=== PATIENT | male | born 1985 | race African-American/Black ===

== ENCOUNTER 2016-09-28 10:24 | Emergency (ER) | payer MEDICAID ==
[~2016-09-28] VITALS: Ht 170.2 cm; Wt 80.0 kg
[~2016-09-28 10:24] MED LIST: ONDA4TAB14 PO
[2016-09-28 10:30] VITALS: Ht 170.2 cm; Wt 80.0 kg
[2016-09-28] MEDS ORDERED: morphine 4 MG/ML VIAL IV STA (11:50)
[2016-09-28] MEDS ORDERED: ONDANSETRON 4 MG INJ IV STA (11:50)
[2016-09-28] MEDS ORDERED: SOD CHLORIDE 0.9% 1,000 ML IV STA (11:50)
[2016-09-28 12:21] LABS: ADD SCAN DIFF NO
[2016-09-28 12:27] LABS: ADD UMIC NO; URINE BILIRUBIN (Dip) NEGATIVE (NEGATIVE); URINE BLOOD (Dip) NEGATIVE (NEGATIVE); URINE COLOR LT. YELLOW (YELLOW); URINE GLUCOSE (Dip) NEGATIVE (NEGATIVE); URINE KETONES (Dip) NEGATIVE (NEGATIVE); URINE LEUKOCYTE ESTERASE (Dip) NEGATIVE (NEGATIVE); URINE NITRITE (Dip) NEGATIVE (NEGATIVE); URINE TOTAL PROTEIN (Dip) NEGATIVE (NEGATIVE); URINE UROBILINOGEN (Dip) 0.2 E.U./dL (0.1-1.0)
[2016-09-28 12:44] LABS: ALBUMIN 4.7 g/dl (3.3-4.9); ALBUMIN/GLOBULIN RATIO 2.13; BILIRUBIN,INDIRECT 0.6 mg/dl (0-1.1); BILIRUBIN,TOTAL 0.6 mg/dl (0.2-1.3); CALCIUM 9.7 mg/dl (8.4-10.2); CREATININE 1.04 mg/dl (0.61-1.24); POTASSIUM 4.5 mmol/L (3.5-5.1); TOTAL PROTEIN 6.9 g/dl (6.1-8.1)
[2016-09-28 12:50] LABS: BASOPHILS % 0.6 % (0.0-2.0); EOSINOPHILS # 0.1 10^3/ul (0.0-0.5); EOSINOPHILS % 1.2 % (0.0-7.0); HEMATOCRIT 45.5 % (42.0-52.0); LYMPHOCYTES # 1.1 10^3/ul (0.8-2.9); LYMPHOCYTES % 17.4 % (15.0-51.0); MEAN CORPUSCULAR HEMOGLOBIN 29.8 pg (29.0-33.0); MEAN CORPUSCULAR VOLUME 90.5 fl (82.0-101.0); MEAN PLATELET VOLUME 9.6 fl (7.4-10.4); MONOCYTE # 0.4 10^3/ul (0.3-0.9); MONOCYTES % 5.8 % (0.0-11.0); NEUTROPHIL # 4.9 10^3/ul (1.6-7.5); NEUTROPHILS % 74.7 % (39.0-77.0); PLATELET COUNT 319 10^3/UL (140-415); RED BLOOD COUNT 5.03 10^6/ul (4.70-6.10); RED CELL DISTRIBUTION WIDTH 12.9 % (11.5-14.5); WHITE BLOOD COUNT 6.6 10^3/ul (4.8-10.8)
[2016-09-28] MEDS ORDERED: KETOROLAC 30 MG INJ IV STA (12:56)
[2016-09-28] MEDS ORDERED: FIORICET PO (13:20)
[2016-09-28] MEDS ORDERED: ONDA8TAB14 PO (13:20)
--- NOTE | 2016-09-28 13:26 | ERD ---
ER Documentation Chief Complaint Date/Time DATE: 09/28/16 TIME: 13:22 Chief Complaint HEADACHE AND CHEST PAIN X3DAYS HPI This 30-year-old male presents with nonspecific headache and some discomfort in his chest and abdomen for last 3 days. Patient gives a remote history of migraines. This 1 feels similar to headaches he has had in the past although somewhat worse. Denies any history of trauma, fevers, visual changes. He has nausea but no vomiting. Patient has a history of pancreatitis and states that he usually gets headaches when his when he has pancreatitis flareups but he does not have any abdominal pain today. He does admit to some recent alcohol intake, review of the record shows that the patient had a normal CT scan approximately 10 months ago and an MRI showing changes consistent with migraine headaches around the same time.. ROS All systems reviewed and are negative except as per history of present illness. Medications Home Meds Active Scripts Ondansetron (Ondansetron Odt) 8 Mg Tab.rapdis, 8 MG PO Q6H Y for NAUSEA AND/OR VOMITING, #8 TAB Prov:ARTURO BANDA MD 09/28/16 Acetamin/Butalbital/Caffeine* (Fioricet*) [id number] Tab, 1 TAB PO Q6H Y for PAIN, #20 TAB Prov:ARTURO BANDA MD 09/28/16 Ondansetron (Ondansetron Odt) 4 Mg Tab.rapdis, 4 MG PO Q6H Y for NAUSEA AND/OR VOMITING, #20 TAB Prov:KISHORE HOLLAND 03/10/16 Allergies Allergies: Coded Allergies: No Known Allergy (Unverified , 03/10/16) PMhx/Soc History of Surgery: No Anesthesia Reaction: No Hx Neurological Disorder: No Hx Respiratory Disorders: No Hx Cardiac Disorders: No Hx Psychiatric Problems: No Hx Miscellaneous Medical Probl: Yes (HX PANCREATITIS ) Hx Alcohol Use: Yes Hx Substance Use: No (denies) Hx Tobacco Use: Yes (denies) Smoking Status: Never smoker Physical Exam Vitals Vital Signs Date Time Temp Pulse Resp B/P Pulse Ox O2 Delivery O2 Flow Rate FiO2 09/28/16 10:30 97.8 60 18 130/70 100 Physical Exam Const: [] Alert, [id number] per Head: Atraumatic Eyes: Normal Conjunctiva. Eyes PERRLA and extraocular movements intact ENT: Normal External Ears, Nose and Mouth. Neck: Full range of motion..~ No meningismus. Resp: Clear to auscultation bilaterally Cardio: Regular rate and rhythm, no murmurs Abd: Soft, non tender, non distended. Normal bowel sounds Skin: No petechiae or rashes Back: No midline or flank tenderness Ext: No cyanosis, or edema Neur: Awake and alert. Cranial nerves II through XII grossly intact. Normal gait. No cerebellar signs. Psych: Normal Mood and Affect Result Diagram: 09/28/16 1200 09/28/16 1200 Results 24 hrs Laboratory Tests Test 09/28/16 12:00 White Blood Count 6.610^3/ul Red Blood Count 5.0310^6/ul Hemoglobin 15.0g/dl Hematocrit 45.5% Mean Corpuscular Volume 90.5fl Mean Corpuscular Hemoglobin 29.8pg Mean Corpuscular Hemoglobin Concent 33.0g/dl Red Cell Distribution Width 12.9% Platelet Count 38348^3/UL Mean Platelet Volume 9.6fl Neutrophils % 74.7% Lymphocytes % 17.4% Monocytes % 5.8% Eosinophils % 1.2% Basophils % 0.6% Nucleated Red Blood Cells % 0.0/100WBC Neutrophils # 4.910^3/ul Lymphocytes # 1.110^3/ul Monocytes # 0.410^3/ul Eosinophils # 0.110^3/ul Basophils # 0.010^3/ul Nucleated Red Blood Cells # 0.010^3/ul Urine Color LT. YELLOW Urine Clarity CLEAR Urine pH 6.5 Urine Specific [place] 1.015 Urine Ketones NEGATIVE Urine Nitrite NEGATIVE Urine Bilirubin NEGATIVE Urine Urobilinogen 0.2 E.U./dL Urine Leukocyte Esterase NEGATIVE Urine Hemoglobin NEGATIVE Urine Glucose NEGATIVE% Urine Total Protein NEGATIVE Sodium Level 143mmol/L Potassium Level 4.5mmol/L Chloride Level 108mmol/L Carbon Dioxide Level 27mmol/L Anion Gap 13 Blood Urea Nitrogen 10mg/dl Creatinine 1.04mg/dl Glucose Level 86mg/dl Calcium Level 9.7mg/dl Total Bilirubin 0.6mg/dl Direct Bilirubin 0.00mg/dl Indirect Bilirubin 0.6mg/dl Aspartate Amino Transf (AST/SGOT) 17IU/L Alanine Aminotransferase (ALT/SGPT) 23IU/L Alkaline Phosphatase 44IU/L Total Protein 6.9g/dl Albumin 4.7g/dl Globulin 2.20g/dl Albumin/Globulin Ratio 2.13 Lipase 105U/L Current Medications Medications (Trade) Dose Ordered Sig/Mirian Route PRN Reason Start Time Stop Time Status Last Admin Dose Admin Sodium Chloride (NS) 1,000 ml @ 1,000 mls/hr Q1H STAT IV 09/28/16 11:50 09/28/16 12:49 DC 09/28/16 11:58 Morphine Sulfate (morphine) 4 mg ONCE STAT IV 09/28/16 11:50 09/28/16 11:51 DC 09/28/16 11:57 Ondansetron HCl (Zofran Inj) 4 mg ONCE STAT IV 09/28/16 11:50 09/28/16 11:51 DC 09/28/16 11:57 Ketorolac Tromethamine (Toradol) 30 mg ONCE STAT IV 09/28/16 12:56 09/28/16 13:08 DC 09/28/16 13:10 Procedures/MDM Patient presents with a history of pancreatitis with mild abdominal pain and headache.. Patient appears somewhat uncomfortable and IV was obtained. Patient was given 1 L normal saline IV, morphine 4 mg IV and Zofran 4 mg IV. Patient had improvement in headache. CBC and CMP and lipase are normal. Patient was given Toradol 30 mg IV after improvement in symptoms with mild residual headache. EKG: Rate/Rhythm: [Normal Sinus Rhythm] rate equals 51 QRS, ST, T-waves: [No changes consistent w/ acute ischemia] Impression: [No evidence of ischemia or arrhythmia]. Impression-sinus bradycardia without acute findings on EKG. Patient presents with multiple complaints including headaches, mild abdominal pain. CT was was deferred given normal CT and MRI approximately 10 months ago. Patient suspect has a migraine headache. Signs and symptoms do not suggest meningitis, neurologic deficit, mass-effect. Signs and symptoms additionally do not suggest acute abdomen, cardiac chest pain, additional causes of presenting complaints. We treated with a short course of Zofran and Fioricet and primary care follow-up. The patient was stable with no new complaints during the ER course. Clinically, there is no current evidence to suggest meningitis, sepsis, acute abdomen, pneumonia, acute coronary syndrome, pulmonary embolism, or any other emergent condition appearing to require further evaluation or hospitalization. The patient should certainly return for any new or worsening symptoms per the aftercare instructions. They should otherwise follow-up with her primary care doctor for reevaluation this week. Departure Diagnosis: Primary Impression: Headache Headache type: unspecified Headache chronicity pattern: unspecified pattern Intractability: not intractable Qualified Code: R51 - Nonintractable headache, unspecified chronicity pattern, unspecified headache type Condition: Stable Patient Instructions: Headache, Unspecified Referrals: [facility] YOU HAVE RECEIVED A MEDICAL SCREENING EXAM AND THE RESULTS INDICATE THAT YOU DO NOT HAVE A CONDITION THAT REQUIRES URGENT TREATMENT IN THE EMERGENCY DEPARTMENT. FURTHER EVALUATION AND TREATMENT OF YOUR CONDITION CAN WAIT UNTIL YOU ARE SEEN IN YOUR DOCTORS OFFICE WITHIN THE NEXT 1-2 DAYS. IT IS YOUR RESPONSIBILITY TO MAKE AN APPOINTMENT FOR FOLOW-UP CARE. IF YOU HAVE A PRIMARY DOCTOR --you should call your primary doctor and schedule an appointment IF YOU DO NOT HAVE A PRIMARY DOCTOR YOU CAN CALL OUR PHYSICIAN REFERRAL HOTLINE AT IF YOU CAN NOT AFFORD TO SEE A PHYSICIAN YOU CAN CHOSE FROM THE FOLLOWING [facility] [address] [facility]. [facility] [address] [facility]. [facility] [address] [facility] [facility] [address] [facility]. [facility] [address] [facility]. [facility]. [address] Additional Instructions: Suspect migrainous cause of headache. Additional examinations today normal. See primary doctor for follow-up or return to the ER for new or worsening problems-fevers, vomiting, weakness. ARTURO BANDA MD Sep 28, 2016 13:26
[2016-09-28] MEDS ORDERED: HYDR-906 PO (13:32)
== END 2016-09-28 13:47 | disposition home or self-care (01) ==
LOC: FTE 10:24
DX: R51 Headache (principal); R11.0 Nausea; Z87.891 Personal history of nicotine dependence
CPT/HCPCS: 36415; 80053; 81003; 83690; 85025; 93005; 96374; 96375; J2270; J2405; J7030; Z7502